=== PATIENT | female | born 1930 | race Caucasian/White ===

== ENCOUNTER 2016-09-14 08:37 | Inpatient (IN) | payer OTHER, BC ==
[~2016-09-14] VITALS: Ht 165.1 cm; Wt 75.0 kg
[~2016-09-14 08:37] MED LIST: ACTOS45 MG PO; ADULT LOW DOSE81 M1 PO; BONIVA150 MG PO; CALCIUM CARBON600 M1 PO; CALTRATE 6001 TABLE1 PO; COUMADIN,JANTOVE4 MG PO; COUMADIN,JANTOVE6 MG PO; COUMADIN4 MG PO; FEOSOL325 MG PO; HYDROCODON-ACE1 EACH PO; LANOXIN,DIGIT0.25 MG PO; LANOXIN125 MCG PO; LEVOTHYROXINE112 MCG PO; LOPRESSOR25 MG PO; LOTREL 5/101 CAPSULE PO; Levothroid,Synthroid PO; METOPROLOL TART25 MG PO; MULTIVITAMIN1 EAC2 PO; NOVOLOG MI100 UNIT/M SC; SENOKOT S,PE1 TABLET PO; STRESS FORMULA1 TAB PO; VESICARE5 MG PO; VYTORIN 10/21 TABLET PO; Vicodin,Lortab 5/500 PO
[2016-09-14 08:52] LABS: POINT-OF-CARE METER ID UU14100415
[2016-09-14 09:49] LABS: BASOPHIL COUNT 0.1 K/uL (0-0.1); EOSINOPHIL COUNT 0.2 K/uL (0-0.3); HEMATOCRIT 41.6 % (36.0-46.0); IMMATURE GRANULOCYTE (%) 0.8 % (0.0-0.7); IMMATURE GRANULOCYTE COUNT 0.1 K/uL; INSTRUMENT ABS NEUTROPHIL CT 6.6 K/uL; LYMPHOCYTE COUNT 3.1 K/uL (1.0-2.8); MCH 29.1 PG (29.0-34.0); MCHC 32.9 G/DL (30.0-36.0); MCV 88.5 FL (83-99); MEAN PLAT.VOLUME 11.4 uM^3 (9.5-12.4); MONOCYTE (%) 9.8 % (3-12); MONOCYTE COUNT 1.1 K/uL (0-0.8); NEUTROPHIL (%) 58.8 % (45-76); NEUTROPHIL COUNT 6.6 K/uL (1.8-6.4); PLATELET COUNT 180 K/uL (156-360); RBC DIS.WIDTH-CV 17.3 % (11.8-14.6); RBC DIS.WIDTH-SD 55.7 % (39-53)
[2016-09-14 09:53] LABS: WHITE BLOOD COUNT 11.2 K/uL (4.1-10.2)
[2016-09-14 09:58] LABS: INTER. NORMALIZED RATIO 3.7; PROTHROMBIN TIME 38.7 (9.2-11.2); PTT 36.1 (25-32)
[2016-09-14 10:03] LABS: CHLORIDE 103 mEq/L (99-109); POTASSIUM 4.2 mEq/L (3.7-5.4); SODIUM 134 mEq/L (136-147)
[2016-09-14 10:05] LABS: GLUCOSE 167 mg/dL (70-99)
[2016-09-14 10:06] LABS: ANION GAP 16 MEQ/L (2-14)
[2016-09-14 10:08] LABS: GFR ESTIMATE (CALCULATED) 33 mL/min/
[2016-09-14 10:09] LABS: TROP-I INTERPRETATION NEGATIVE; TROPONIN-I 0.11 ng/mL (0.0-0.30); UREA NITROGEN (BUN) 57 mg/dL (9-23)
[2016-09-14 10:35] VITALS: BP 145/72
== END 2016-09-14 17:55 | DRG 86 ==
LOC: EME 08:37 → EDOF 10:15 → 5EAST 10:46
PROVIDERS: Emergency Medicine
DX: S06.5X0A Traumatic subdural hemorrhage without loss of consciousness, initial encounter (principal); S42.292A Other displaced fracture of upper end of left humerus, initial encounter for closed fracture; W10.1XXA Fall (on)(from) sidewalk curb, initial encounter; Y92.538 Other ambulatory health services establishments as the place of occurrence of the external cause; I48.91 Unspecified atrial fibrillation; Z95.2 Presence of prosthetic heart valve; Z79.01 Long term (current) use of anticoagulants; E11.9 Type 2 diabetes mellitus without complications; Z66 Do not resuscitate; Z51.5 Encounter for palliative care; L03.115 Cellulitis of right lower limb; L03.116 Cellulitis of left lower limb; I10 Essential (primary) hypertension; K21.9 Gastro-esophageal reflux disease without esophagitis; M81.0 Age-related osteoporosis without current pathological fracture; M19.90 Unspecified osteoarthritis, unspecified site; F32.9 Major depressive disorder, single episode, unspecified; Z79.4 Long term (current) use of insulin; Z95.0 Presence of cardiac pacemaker; Z87.891 Personal history of nicotine dependence
CPT/HCPCS: 36415; 70450; 71010; 73030; 80048; 80053; 80061; 80162; 82043; 82570; 82948; 83036; 84439; 84443; 84484; 85025; 85025 91; 85610; 85730; 86850; 86900; 86901; 93005; 99281; 99284; J2270; J7120